=== PATIENT | female | born 1970 | race Two or more races ===

== ENCOUNTER → 2017-05-25 | Outpatient (CLI) | payer OTHER | END | disposition home or self-care (01) | LOC: MAMO-SONO 14:59 | DX: Z12.31 Encounter for screening mammogram for malignant neoplasm of breast (principal); N60.11 Diffuse cystic mastopathy of right breast; N60.12 Diffuse cystic mastopathy of left breast ==

== ENCOUNTER → 2018-06-06 | Outpatient (CLI) | payer OTHER | END | disposition home or self-care (01) | LOC: MAMO-SONO 06-02 11:15 | DX: N60.11 Diffuse cystic mastopathy of right breast (principal); N60.12 Diffuse cystic mastopathy of left breast; Z12.31 Encounter for screening mammogram for malignant neoplasm of breast; N83.02 Follicular cyst of left ovary ==

== ENCOUNTER 2019-08-03 08:32 | Outpatient (CLI) | payer OTHER | END 2019-08-03 08:34 | disposition home or self-care (01) | LOC: MAMO-SONO 08:32 | PROVIDERS: ATTEND Specialist | DX: Z12.31 Encounter for screening mammogram for malignant neoplasm of breast (principal); N60.11 Diffuse cystic mastopathy of right breast; N60.12 Diffuse cystic mastopathy of left breast ==

== ENCOUNTER 2020-12-04 07:18 | Outpatient (CLI) | payer OTHER | END 2020-12-04 07:21 | disposition home or self-care (01) | LOC: MAMO-SONO 07:18 | PROVIDERS: ATTEND Specialist | DX: N60.11 Diffuse cystic mastopathy of right breast (principal); N60.12 Diffuse cystic mastopathy of left breast; Z12.31 Encounter for screening mammogram for malignant neoplasm of breast ==

== ENCOUNTER 2021-12-08 08:10 | Outpatient (CLI) | payer OTHER | END 2021-12-08 08:22 | disposition home or self-care (01) | LOC: MAMO-SONO 08:10 | PROVIDERS: ATTEND Specialist | DX: N60.11 Diffuse cystic mastopathy of right breast (principal); N60.12 Diffuse cystic mastopathy of left breast ==

== ENCOUNTER 2022-09-18 11:45 | Outpatient (CLI) | payer OTHER | END 2022-09-18 12:29 | disposition home or self-care (01) | LOC: MAMO-SONO 11:45 | PROVIDERS: ATTEND Specialist | DX: N60.11 Diffuse cystic mastopathy of right breast (principal); N60.12 Diffuse cystic mastopathy of left breast; Z12.31 Encounter for screening mammogram for malignant neoplasm of breast; R10.2 Pelvic and perineal pain ==

== ENCOUNTER 2023-09-23 15:08 | Outpatient (CLI) | payer OTHER | END 2023-09-23 15:23 | disposition home or self-care (01) | LOC: MAMO-SONO 15:08 | PROVIDERS: ATTEND Specialist | DX: N95.1 Menopausal and female climacteric states (principal); Z12.31 Encounter for screening mammogram for malignant neoplasm of breast; N64.2 Atrophy of breast ==

== ENCOUNTER 2024-09-26 13:23 | Outpatient (CLI) | payer OTHER | END 2024-09-26 13:28 | disposition home or self-care (01) | LOC: MAMO-SONO 13:23 | PROVIDERS: ATTEND Specialist | DX: Z12.31 Encounter for screening mammogram for malignant neoplasm of breast (principal); N64.4 Mastodynia ==